=== PATIENT | female | born 1985 | race Hispanic/Latino ===

== ENCOUNTER 2019-08-03 06:49 | Emergency (ER) | payer OTHER ==
[2019-08-03 07:54] LABS: Urine Blood TRACE (NEG); Urine Glucose 2+ (NEG); Urine Protein NEGATIVE (NEG)
[2019-08-03] MEDS ORDERED: FAMOTIDINE 20 MG/2 ML VIAL IV ONE (07:54)
[2019-08-03] MEDS ORDERED: NA CHLORIDE 0.9% 1,000 ML ONE (07:54)
[2019-08-03] MEDS ORDERED: ONDANSETRON 4 MG/2 ML VIAL ONE (07:56)
[2019-08-03 08:03] LABS: Urine Bacteria >50 /HPF (<20); Urine Culture Reflex Order NOT NEEDED
[2019-08-03 08:12] LABS: Absolute Lymphocytes (CBC) 0.5 K/uL (0.7-4.9); Basophils % 0.3 % (0-1.3); Hematocrit 37.3 % (36.0-45.0); Lymphocytes % 6.6 % (15.3-44.8); MPV 8.4 fL (7.6-11.3)
[2019-08-03] MEDS ORDERED: CEFTRIAXONE/SWI 1gm 1 GM/10 ML SYR ONE (08:14)
[2019-08-03 08:27] LABS: ALT/SGPT 17 U/L (12-78); AST/SGOT 15 U/L (15-37); Albumin 2.8 g/dL (3.4-5.0); Alkaline Phosphatase 85 U/L (45-117); BUN Blood Urea Nitrogen 13 mg/dL (7-18); Bicarbonate 23 mmol/L (21-32); Bilirubin Direct 0.1 mg/dL (0-0.2); Bilirubin Total 0.3 mg/dL (0.2-1.0); Glucose Level 214 mg/dL (74-106); Lipase 50 U/L (73-393); Potassium 3.7 mmol/L (3.5-5.1); Protein, Total 6.7 g/dL (6.4-8.2); Sodium Level 137 mmol/L (136-145)
--- NOTE | 2019-08-03 08:37 | EDPHYS ---
Physician Documentation [facility] Name: Tran Spears Age: 34 yrs Sex: Female : 1985 Arrival Date: 08/03/2019 Time: 06:52 Bed 5 Private MD: ED Physician Victor Hugo Abdalla HPI: 08/02 07:40 This 34 yrs old Female presents to ER via Ambulatory with complaints of Fever, cp Abdominal Pain. 07:40 The patient reports fever, not measured (subjective). Onset: The symptoms/episode cp began/occurred 2 day(s) ago. Associated signs and symptoms: Pertinent positives: abdominal pain, vomiting, burning with urination, Pertinent negatives: cough, diarrhea, sore throat. Severity of symptoms: in the emergency department the symptoms are unchanged despite home interventions. 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 - Social history:: Smoking status: Patient denies any tobacco usage or history of. ROS: 07:45 Constitutional: Negative for body aches, chills, fever, poor PO intake. cp 07:45 Eyes: Negative for injury, pain, redness, and discharge. cp 07:45 ENT: Negative for drainage from ear(s), ear pain, sore throat, difficulty swallowing, cp difficulty handling secretions. 07:45 Cardiovascular: Negative for chest pain. 07:45 Respiratory: Negative for cough, shortness of breath, wheezing. 07:45 Abdomen/GI: Positive for abdominal pain, nausea and vomiting. 07:45 Back: Negative for pain at rest, pain with movement. 07:45 : Positive for urinary symptoms. 07:45 Neuro: Negative for altered mental status, headache, weakness. 07:45 All other systems are negative. Exam: 07:55 Constitutional: The patient appears in no acute distress, alert, awake, non-toxic, well cp developed, well nourished. 07:55 Head/Face: Normocephalic, atraumatic. cp 07:55 Eyes: Periorbital structures: appear normal, Conjunctiva: normal, no exudate, no injection, Sclera: no appreciated abnormality, Lids and lashes: appear normal, bilaterally. 07:55 ENT: External ear(s): are unremarkable, Nose: is normal, Mouth: is normal, Posterior pharynx: Airway: no evidence of obstruction, patent. 07:55 Neck: ROM/movement: is normal, is supple, without pain, no range of motions limitations. 07:55 Chest/axilla: Inspection: normal. 07:55 Cardiovascular: Rate: tachycardic, Rhythm: regular. 07:55 Respiratory: the patient does not display signs of respiratory distress, Respirations: normal, no use of accessory muscles, no retractions, labored breathing, is not present, Breath sounds: are clear throughout, no decreased breath sounds. 07:55 Abdomen/GI: Inspection: abdomen appears normal, Bowel sounds: active, all quadrants, Palpation: soft, in all quadrants, nontender, in all quadrants. 07:55 Back: pain, is absent, ROM is normal. Vital Signs: 07:15 BP 130 / 80; Pulse 107; Resp 17; Temp 98.7; Pulse Ox 100% ; Weight 77.11 kg; Height 5 bp ft. 3 in. (160.02 cm); 08:15 BP 117 / 71; Pulse 96; Resp 16; Pulse Ox 100% ; bp 09:00 BP 140 / 87; Pulse 95; Resp 17; Temp 98.5; Pulse Ox 100% ; bp 07:15 Body Mass Index 30.11 (77.11 kg, 160.02 cm) bp MDM: 07:16 Patient medically screened. 08:36 Data reviewed: vital signs, nurses notes, lab test result(s). 08/02 07:35 Order name: Basic Metabolic Panel; Complete Time: 08:31 08/02 08:32 Interpretation: Normal except: CL 109; GLUC 214; CA 8.4. 08/02 07:35 Order name: CBC with Diff; Complete Time: 08:19 / 08:19 Interpretation: Normal except: TIANNA% 81.7; LYM% 6.6. / 07:35 Order name: Creatinine for Radiology; Complete Time: 08:31 08/02 07:35 Order name: Hepatic Function; Complete Time: 08:31 /03 08:31 Interpretation: Normal except: ALB 2.8; GLOB 3.9; A/G 0.7. cp 08/02 07:35 Order name: Lipase; Complete Time: 08:31 cp 08/02 07:35 Order name: Urine Microscopic Only; Complete Time: 08:03 cp 08/02 08:04 Interpretation: Normal except: UWBC >50; URBC 5-10; UBACT >50; SQEPI 5-10. cp 08/02 07:40 Order name: Urine Culture cp 08/02 07:41 Order name: Glucose, Ancillary Testing; Complete Time: 08:03 EDMS 08/02 07:47 Order name: Urine Dipstick--Ancillary (enter results); Complete Time: 08:03 eb 08/02 07:47 Order name: Urine --Ancillary (enter results); Complete Time: 08:03 eb 08/02 07:35 Order name: IV Saline Lock; Complete Time: 07:53 cp 08/02 07:35 Order name: Labs collected and sent; Complete Time: 07:53 cp 08/02 07:35 Order name: Urine Dipstick-Ancillary (obtain specimen); Complete Time: 07:41 cp 08/02 07:35 Order name: Urine Test (obtain specimen); Complete Time: 07:41 cp 08/02 08:32 Order name: PO challenge; Complete Time: 09:00 cp Administered Medications: 08:00 Drug: NS 0.9% 1000 ml Route: IV; Rate: 1 bolus; Site: right antecubital; bp 09:02 Follow up: IV Status: Completed infusion; IV Intake: 1000ml bp 08:03 Drug: Zofran (Ondansetron) 4 mg Route: IVP; Site: right antecubital; rb1 09:02 Follow up: Response: Nausea is decreased bp 08:03 Drug: Pepcid 20 mg Route: IVP; Site: right antecubital; rb1 09:02 Follow up: Response: Nausea is decreased bp 08:08 Drug: Rocephin - (cefTRIAXone) 1 grams Route: IVPB; Infused Over: 30 mins; Site: right bp antecubital; 09:02 Follow up: IV Status: Completed infusion; IV Intake: 50ml bp Disposition: 09:05 Co-signature as Attending Physician, Victor Hugo Abdalla MD. rn Disposition: 08/03/19 08:36 Discharged to Home. Impression: Urinary tract infection, site not specified, Diabetes mellitus due to underlying condition with hyperglycemia. - Condition is Stable. - Discharge Instructions: Urinary Tract Infection, Adult, Blood Glucose Monitoring, Adult, Diabetes Mellitus and Food. - Prescriptions for Zofran 4 mg Oral Tablet - take 1 tablet by ORAL route every 12 hours As needed; 10 tablet. Bactrim DS 800- 160 mg Oral Tablet - take 1 tablet by ORAL route every 12 hours for 7 days; 14 tablet. Pyridium 200 mg Oral Tablet - take 1 tablet by ORAL route every 8 hours for 3 days; 6 tablet. - Medication Reconciliation Form, Thank You Letter, Antibiotic Education, Prescription Opioid Use form. - Follow up: Private Physician; When: 2 - 3 days; Reason: Recheck today's complaints. - Problem is new. - Symptoms have improved. Signatures: Dispatcher [employer] EDMS Victor Hugo Abdalla MD MD rn Natanael Negro PA PA cp Barber, Rebecca, NORMAN AUSTIN rb1 Raleigh Kenyon RN RN bp Corrections: (The following items were deleted from the chart) 08:32 08:31 Normal except: CL 109; GLUC 214. cp cp 09:03 08:36 08/03/2019 08:36 Discharged to Home. Impression: Urinary tract infection, site bp not specified; Diabetes mellitus due to underlying condition with hyperglycemia. Condition is Stable. Prescriptions for Zofran 4 mg Oral Tablet - take 1 tablet by ORAL route every 12 hours As needed; 10 tablet, Bactrim DS 800-160 mg Oral Tablet - take 1 tablet by ORAL route every 12 hours for 7 days; 14 tablet, Pyridium 200 mg Oral Tablet - take 1 tablet by ORAL route every 8 hours for 3 days; 6 tablet. and Forms are Medication Reconciliation Form, Thank You Letter, Antibiotic Education, Prescription Opioid Use. Follow up: Private Physician; When: 2 - 3 days; Reason: Recheck today's complaints. Problem is new. Symptoms have improved. cp
--- NOTE | 2019-08-03 08:37 | ER ---
Nurse's Notes [facility] Name: Tran Spears Age: 34 yrs Sex: Female : 1985 Arrival Date: 08/03/2019 Time: 06:52 Bed 5 Private MD: Diagnosis: Urinary tract infection, site not specified;Diabetes mellitus due to underlying condition with hyperglycemia Presentation: 08/02 07:15 Chief complaint: Patient states: DYSURIA, FEVER AND VOMITING x2 DAYS. Coronavirus bp screen: Proceed with normal triage. Patient reports a measured and/or subjective temperature greater than 100.4F. Ebola Screen: No symptoms or risks identified at this time. Initial Sepsis Screen: Does the patient meet any 2 criteria? HR > 90 bpm. Does the patient have a suspected source of infection? No. Patient's initial sepsis screen is negative. Risk Assessment: Do you want to hurt yourself or someone else? Patient reports no desire to harm self or others. Onset of symptoms is unknown. 07:15 Method Of Arrival: Ambulatory bp 07:15 Acuity: LIN 3 bp Triage Assessment: 07:15 General: Appears in no apparent distress. uncomfortable, obese, Behavior is bp cooperative, appropriate for age, anxious. 07:15 Pain: Complains of pain in suprapubic area. EENT: No deficits noted. Neuro: No deficits bp noted. Cardiovascular: Rhythm is sinus tachycardia. Respiratory: No deficits noted. GI: Reports lower abdominal pain, nausea, vomiting. : Reports burning with urination. Derm: No deficits noted. Musculoskeletal: No deficits noted. 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 - Social history:: Smoking status: Patient denies any tobacco usage or history of. Screenin:40 Abuse screen: Denies threats or abuse. Denies injuries from another. Nutritional bp screening: No deficits noted. Tuberculosis screening: No symptoms or risk factors identified. Fall Risk None identified. Assessment: 07:40 General: SEE TRIAGE NOTE. bp 08:15 Reassessment: IVF INFUSING, ALL CURRENT ORDERS IN PROCESS. bp 09:00 Reassessment: PO CHALLENGE SUCCESSFUL. PT D/C HOME AMBULATORY, DX WITH UTI. bp Vital Signs: 07:15 BP 130 / 80; Pulse 107; Resp 17; Temp 98.7; Pulse Ox 100% ; Weight 77.11 kg; Height 5 bp ft. 3 in. (160.02 cm); 08:15 BP 117 / 71; Pulse 96; Resp 16; Pulse Ox 100% ; bp 09:00 BP 140 / 87; Pulse 95; Resp 17; Temp 98.5; Pulse Ox 100% ; bp 07:15 Body Mass Index 30.11 (77.11 kg, 160.02 cm) bp ED Course: 06:52 Patient arrived in ED. ds1 06:55 Natanael Negro PA is PHCP. cp 06:55 Natanael Schreiber MD is Attending Physician. cp 07:15 Arm band placed on. bp 07:16 Victor Hugo Abdalla MD is Attending Physician. cp 07:21 Raleigh Kenyon, NORMAN is Primary Nurse. bp 07:37 Triage completed. bp 07:40 Patient has correct armband on for positive identification. Bed in low position. Call bp light in reach. Side rails up X2. 08:00 Inserted saline lock: 22 gauge in right antecubital area, using aseptic technique. rb1 Blood collected. 09:00 No provider procedures requiring assistance completed. IV discontinued, intact, bp bleeding controlled, No redness/swelling at site. Pressure dressing applied. Administered Medications: 08:00 Drug: NS 0.9% 1000 ml Route: IV; Rate: 1 bolus; Site: right antecubital; bp 09:02 Follow up: IV Status: Completed infusion; IV Intake: 1000ml bp 08:03 Drug: Zofran (Ondansetron) 4 mg Route: IVP; Site: right antecubital; rb1 09:02 Follow up: Response: Nausea is decreased bp 08:03 Drug: Pepcid 20 mg Route: IVP; Site: right antecubital; rb1 09:02 Follow up: Response: Nausea is decreased bp 08:08 Drug: Rocephin - (cefTRIAXone) 1 grams Route: IVPB; Infused Over: 30 mins; Site: right bp antecubital; 09:02 Follow up: IV Status: Completed infusion; IV Intake: 50ml bp Intake: 09:02 IV: 1000ml; Total: 1000ml. bp 09:02 IV: 50ml; Total: 1050ml. bp Outcome: 08:36 Discharge ordered by . cole 09:00 Discharged to home ambulatory. bp 09:00 Condition: stable 09:00 Discharge instructions given to patient, Instructed on discharge instructions, follow up and referral plans. medication usage, Demonstrated understanding of instructions, follow-up care, medications, Prescriptions given X 3. 09:03 Patient left the ED. bp Signatures: Denia Christianson ds1 Natanael Negro PA PA Tran Deluna, RN RN rb1 Raleigh Kenyon, RN RN bp
[2019-08-03 09:56] VITALS: O2SAT 100
[2019-08-03 09:57] VITALS: BP 140/87; TEMP 98.5
== END 2019-08-03 09:03 | disposition home or self-care (01) ==
LOC: ER 06:49
DX: N39.0 Urinary tract infection, site not specified (principal); E11.65 Type 2 diabetes mellitus with hyperglycemia; Z88.3 Allergy status to other anti-infective agents
CPT/HCPCS: 87088; 85025; 87086; 80048; 36415; 81025; 82947; 80076; 83690; J0696; J7030; J2405; 81003; 81015; 87077; 87186; 96365; 96375; 99284

== ENCOUNTER 2020-07-10 20:55 | Emergency (ER) | payer OTHER ==
[2020-07-10 22:46] LABS: SARS-COV-2 RT PCR POSITIVE (NEGATIVE)
--- NOTE | 2020-07-10 23:11 | ER ---
Nurse's Notes [facility] Name: Tran Spears Age: 34 yrs Sex: Female : 1985 Arrival Date: 07/10/2020 Time: 20:59 Bed 19 Private MD: Diagnosis: Coronavirus as the cause of diseases classified elsewhere Presentation: 07/10 21:09 Chief complaint: Patient states: Cough, congestion, chills, runny nose last couple sf days. dx with COVID 2 days ago. Coronavirus screen: Client denies travel out of the [place] in the last 14 days. chills, congestion, cough unrelated to allergies, runny nose, Client presents with at least one sign or symptom that may indicate coronavirus-19. Standard/surgical mask placed on the client. Provider contacted for isolation considerations. Ebola Screen: Patient negative for fever greater than or equal to 101.5 degrees Fahrenheit, and additional compatible Ebola Virus Disease symptoms Patient denies exposure to infectious person. Patient denies travel to an Ebola-affected area in the 21 days before illness onset. No symptoms or risks identified at this time. Initial Sepsis Screen: Does the patient meet any 2 criteria? No. Patient's initial sepsis screen is negative. Does the patient have a suspected source of infection? No. Patient's initial sepsis screen is negative. Risk Assessment: Do you want to hurt yourself or someone else? Patient reports no desire to harm self or others. Onset of symptoms was July 08, 2020. 21:09 Method Of Arrival: Ambulatory sf 21:09 Acuity: LIN 3 sf Triage Assessment: 21:13 General: Appears in no apparent distress. comfortable, Behavior is calm, cooperative. sf Pain: Complains of pain in face. EENT: Reports nasal congestion nasal discharge that is watery. Neuro: No deficits noted. Level of Consciousness is awake, alert, Oriented to person, place, time, situation. Cardiovascular: No deficits noted. Capillary refill < 3 seconds. Respiratory: Reports cough that is productive, Airway is patent Respiratory effort is even, unlabored, Respiratory pattern is regular, symmetrical, Denies shortness of breath labored breathing, pain with respiration, pain with cough, pain with movement, air hunger. GI: No signs and/or symptoms were reported involving the gastrointestinal system. : No signs and/or symptoms were reported regarding the genitourinary system. Derm: Skin is moist, Skin is pink, Skin temperature is warm. Musculoskeletal: No signs and/or symptoms reported regarding the musculoskeletal system. Historical: - Allergies: 21:13 Clindamycin; sf - Home Meds: 21:13 metformin 1,000 mg Oral tab 1 tab 2 times per day [Active]; sf - PMHx: 21:13 Diabetes - NIDDM; sf - PSHx: 21:13 None; sf - Immunization history:: Adult Immunizations up to date. - Social history:: Smoking status: Patient reports the use of cigarette tobacco products, smokes .25 packs per day, Patient/guardian denies using alcohol, street drugs, IV drugs. Screenin:15 Abuse screen: Denies threats or abuse. Denies injuries from another. Nutritional sf screening: No deficits noted. Tuberculosis screening: No symptoms or risk factors identified. Never had TB. Possible symptoms: None Risk factors: None. Fall Risk None identified. No fall in past 12 months (0 pts). No secondary diagnosis (0 pts). No IV (0 pts). Ambulatory Aid- None/Bed Rest/Nurse Assist (0 pts). Gait- Normal/Bed Rest/Wheelchair (0 pts) Mental Status- Oriented to own ability (0 pts). Total Langley Fall Scale indicates No Risk (0-24 pts). Assessment: 21:15 Reassessment: SEE TRIAGE ASSESSMENT. sf 22:13 Reassessment: Patient appears in no apparent distress at this time. No changes from sf previously documented assessment. Patient and/or family updated on plan of care and expected duration. Pain level reassessed. Patient is alert, oriented x 3, equal unlabored respirations, skin warm/dry/pink. 23:16 Reassessment: Patient appears in no apparent distress at this time. No changes from sf previously documented assessment. Patient and/or family updated on plan of care and expected duration. Pain level reassessed. Patient is alert, oriented x 3, equal unlabored respirations, skin warm/dry/pink. Vital Signs: 21:09 BP 142 / 92; Pulse 82; Resp 20; Temp 99.1; Pulse Ox 100% ; Weight 90.72 kg; Height 5 sf ft. 3 in. (160.02 cm); Pain 4/10; 21:30 BP 118 / 69; Pulse 83; Resp 18; Pulse Ox 100% ; sf 22:00 BP 115 / 54; Pulse 79; Resp 18; Pulse Ox 99% ; sf 22:30 BP 100 / 88; Pulse 82; Resp 18; Pulse Ox 100% ; sf 23:00 BP 130 / 94; Pulse 90; Resp 18; Pulse Ox 98% ; sf 21:09 Body Mass Index 35.43 (90.72 kg, 160.02 cm) sf ED Course: 20:59 Patient arrived in ED. cf2 21:01 Matt Granger, RN is Primary Nurse. sf 21:02 Natanael Negro PA is PHCP. cp 21:02 Santos Grubbs MD is Attending Physician. cp 21:12 Triage completed. sf 21:13 Arm band placed on. sf 21:15 Patient has correct armband on for positive identification. Bed in low position. Call sf light in reach. Side rails up X 1. Pulse ox on. NIBP on. Door closed. Noise minimized. Visitors limited. Lights dimmed. Verbal reassurance given. 23:16 No provider procedures requiring assistance completed. Patient did not have IV access sf during this emergency room visit. Administered Medications: No medications were administered Outcome: 23:11 Discharge ordered by MD. cp 23:16 Discharged to home ambulatory. sf 23:16 Condition: stable 23:16 Discharge instructions given to patient, Instructed on discharge instructions, follow up and referral plans. medication usage, Demonstrated understanding of instructions, follow-up care, medications, Prescriptions given X 1. 23:21 Patient left the ED. sf Signatures: Natanael Nergo PA PA Brigitte Pereira cf2 Matt Granger RN RN sf Corrections: (The following items were deleted from the chart) 21:16 21:13 Cardiovascular: No deficits noted. Patient's skin is warm and dry. sf sf 21:16 21:13 Derm: No signs and/or symptoms reported regarding the dermatologic system. sf sf
--- NOTE | 2020-07-10 23:11 | EDPHYS ---
Physician Documentation [facility] Name: Tran Spears Age: 34 yrs Sex: Female : 1985 Arrival Date: 07/10/2020 Time: 20:59 Bed 19 Private MD: ED Physician Santos Grubbs HPI: 07/10 21:20 This 34 yrs old Female presents to ER via Ambulatory with complaints of Cough, cp Runny Nose, CHILLS. 21:20 The patient or guardian reports cough, that is intermittent, with no sputum. Onset: The cp symptoms/episode began/occurred 2 day(s) ago. Associated signs and symptoms: Pertinent positives: rhinorrhea, sore throat, Pertinent negatives: chest pain, diarrhea, fever, vomiting. Patient reports was informed today that he was positive for COVID-19. Historical: - Allergies: 21:13 Clindamycin; sf - Home Meds: 21:13 metformin 1,000 mg Oral tab 1 tab 2 times per day [Active]; sf - PMHx: 21:13 Diabetes - NIDDM; sf - PSHx: 21:13 None; sf - Immunization history:: Adult Immunizations up to date. - Social history:: Smoking status: Patient reports the use of cigarette tobacco products, smokes .25 packs per day, Patient/guardian denies using alcohol, street drugs, IV drugs. ROS: 21:25 Constitutional: Negative for body aches, chills, fever, poor PO intake. cp 21:25 Eyes: Negative for injury, pain, redness, and discharge. cp 21:25 ENT: Positive for sore throat, Negative for drainage from ear(s), ear pain, difficulty swallowing, difficulty handling secretions. 21:25 Cardiovascular: Negative for chest pain, palpitations. 21:25 Respiratory: Positive for cough, with no reported sputum, Negative for shortness of breath, wheezing. 21:25 Abdomen/GI: Negative for abdominal pain, nausea, vomiting, and diarrhea. 21:25 Skin: Negative for rash. 21:25 Neuro: Negative for altered mental status, headache, weakness. 21:25 All other systems are negative. Exam: 21:30 Constitutional: The patient appears in no acute distress, alert, awake, cp non-diaphoretic, non-toxic, well developed, well nourished. 21:30 Head/Face: Normocephalic, atraumatic. cp 21:30 Eyes: Periorbital structures: appear normal, Conjunctiva: normal, no exudate, no injection, Sclera: no appreciated abnormality, Lids and lashes: appear normal, bilaterally. 21:30 ENT: External ear(s): are unremarkable, Nose: nasal drainage, and is seen coming from both nares, that is clear, Mouth: Lips: moist, Oral mucosa: moist, Posterior pharynx: Airway: no evidence of obstruction, patent, Tonsils: no enlargement, no exudate, Uvula: midline, erythema, that is mild, exudate, is not appreciated. 21:30 Neck: ROM/movement: is normal, is supple, without pain, no range of motions limitations, no meningismus, Lymph nodes: no appreciated lymphadenopathy. 21:30 Chest/axilla: Inspection: normal, Palpation: is normal, no crepitus, no tenderness. 21:30 Cardiovascular: Rate: normal, Rhythm: regular, Edema: is not appreciated, JVD: is not appreciated. 21:30 Respiratory: the patient does not display signs of respiratory distress, Respirations: normal, no use of accessory muscles, no retractions, labored breathing, is not present, Breath sounds: decreased breath sounds, are not appreciated, stridor, is not appreciated, + upper airway congestion. wheezing: is not appreciated. 21:30 Abdomen/GI: Exam negative for discomfort, distension, guarding, Inspection: abdomen appears normal. Vital Signs: 21:09 BP 142 / 92; Pulse 82; Resp 20; Temp 99.1; Pulse Ox 100% ; Weight 90.72 kg; Height 5 sf ft. 3 in. (160.02 cm); Pain 4/10; 21:30 BP 118 / 69; Pulse 83; Resp 18; Pulse Ox 100% ; sf 22:00 BP 115 / 54; Pulse 79; Resp 18; Pulse Ox 99% ; sf 22:30 BP 100 / 88; Pulse 82; Resp 18; Pulse Ox 100% ; sf 23:00 BP 130 / 94; Pulse 90; Resp 18; Pulse Ox 98% ; sf 21:09 Body Mass Index 35.43 (90.72 kg, 160.02 cm) sf MDM: 21:06 Patient medically screened. cp 22:00 Differential Diagnosis: Bronchitis Influenza Pneumonia Other COVID-19, hypoxia, strep cp throat. 23:10 Data reviewed: vital signs, nurses notes, lab test result(s), and as a result, I will cp discharge patient. 23:10 Counseling: I had a detailed discussion with the patient and/or guardian regarding: the cp historical points, exam findings, and any diagnostic results supporting the discharge/admit diagnosis, lab results, to return to the emergency department if symptoms worsen or persist or if there are any questions or concerns that arise at home. 07/10 21:17 Order name: COVID-19 : Document "Date of Symptom Onset" if Symptomatic. 07/10 21:17 Order name: Strep; Complete Time: 23:07 cp 07/10 22:00 Order name: Throat Culture EDNJ 07/10 22:46 Order name: COVID-19/FLU A+B; Complete Time: 23:07 EDNJ 07/10 23:07 Interpretation: Abnormal: SARSCOV2 RT PCR POSITIVE. cp Administered Medications: No medications were administered Disposition: 07/11 06:03 Co-signature as Attending Physician, Santos Grubbs MD. 7 Disposition: 07/10/20 23:11 Discharged to Home. Impression: Coronavirus as the cause of diseases classified elsewhere. - Condition is Stable. - Discharge Instructions: Form - Excuse from Work, School, or Physical Activity, COVID-19. - Prescriptions for Tessalon Perles 100 mg Oral Capsule - take 2 capsule by ORAL route every 8 hours As needed; 30 capsule. - Medication Reconciliation Form, Thank You Letter, Antibiotic Education, Prescription Opioid Use form. - Follow up: Private Physician; When: 2 - 3 days; Reason: Worsening of condition. - Problem is new. - Symptoms have improved. Signatures: Dispatcher [employer] EDMS Natanael Negro PA PA cp Santos Grubbs MD MD [facility] Matt Granger RN RN sf Corrections: (The following items were deleted from the chart) 07/10 21:41 21:18 Influenza Screen (A \\T\\ B)+[id number] ordered. EDMS EDMS 21:42 21:18 CORONAVIRUS ordered. EDNJ EDMS 23:21 23:11 07/10/2020 23:11 Discharged to Home. Impression: Coronavirus as the cause of sf diseases classified elsewhere. Condition is Stable. Forms are Medication Reconciliation Form, Thank You Letter, Antibiotic Education, Prescription Opioid Use. Follow up: Private Physician; When: 2 - 3 days; Reason: Worsening of condition. Problem is new. Symptoms have improved. cp
[2020-07-11 02:00] VITALS: TEMP 99.1
[2020-07-11 02:05] VITALS: BP 130/94; O2SAT 98
== END 2020-07-10 23:21 | disposition home or self-care (01) ==
LOC: ER 20:55
DX: U07.1 COVID-19 (principal); E11.9 Type 2 diabetes mellitus without complications; Z79.84 Long term (current) use of oral hypoglycemic drugs; F17.210 Nicotine dependence, cigarettes, uncomplicated
CPT/HCPCS: 87070; 87081; 0240U; 99283

== ENCOUNTER 2020-08-13 13:59 | Inpatient (IN) | payer OTHER ==
[2020-08-13 15:16] LABS: Absolute Lymphocytes (CBC) 0.5 K/uL (0.7-4.9); Basophils % 0.1 % (0-1.3); Hematocrit 38.7 % (36.0-45.0); Lymphocytes % 3.1 % (15.3-44.8); MPV 8.3 fL (7.6-11.3); RBC Red Blood Cell Count 4.63 M/uL (3.86-4.86)
[2020-08-13 15:23] LABS: Urine Blood Trace-intact (Negative); Urine Glucose 2+ (Negative); Urine Protein 2+ (Negative); Urine Specific Gravity 1.025 (1.005-1.030); Urine pH 5.5 (5.0-7.0)
[2020-08-13] MEDS ORDERED: NA CHLORIDE 0.9% 1,000 ML ONE (15:26)
[2020-08-13 15:41] LABS: Bilirubin Direct 0.3 mg/dL (0-0.2); Bilirubin Total 0.7 mg/dL (0.2-1.0); Potassium 3.6 mmol/L (3.5-5.1); Protein, Total 7.2 g/dL (6.4-8.2)
[2020-08-13 15:46] LABS: Urine Specific Gravity/Preg 1.025 (1.005-1.030)
[2020-08-13 15:52] LABS: Blood Morphology Comment NOT SEEN (NOT SEEN); Platelet Estimate ADEQ; White Blood Cell Scan OK (OK)
[2020-08-13 16:13] LABS: Urine Bacteria 20-50 /HPF (<20)
[2020-08-13] MEDS ORDERED: KETOROLAC 30 MG/ML INJ ONE (16:22)
--- NOTE | 2020-08-13 16:27 | RAD REPORT ---
EXAM DESCRIPTION: CT - Abdomen Pelvis W Contrast - 08/13/2020 4:08 pm CLINICAL HISTORY: Abdominal pain COMPARISON: 2010 TECHNIQUE: Computed axial tomography of the abdomen pelvis was obtained. 100 cc Isovue-300 was admin istered intravenously. Oral contrast was not requested which limits evaluation of bowel. All CT scans are performed using dose optimization technique as appropriate and may include automated exposure control or mA/KV adjustment according to patient size. FINDINGS: A 10 millimeter opacity left lower lobe contains couple small lucencies. Additional smalle r opacity left lower lobe. Mild fatty liver. Spleen, pancreas, adrenals appear unremarkable. 11 millimeter fatty lesion right kidney. Moderate low-density areas are present within the left kidney reaching the periphery consistent with pyelonephritis. No abscess seen. There is no evidence of diverticulitis. Normal appendix IMPRESSION: Moderate pyelonephritis. Left lung opacities. These could indicate infection such as septic emboli
--- NOTE | 2020-08-13 17:31 | RAD REPORT ---
EXAM DESCRIPTION: Ceasar Pa And Lat (2 Views)08/13/2020 5:17 pm CLINICAL HISTORY: Fever COMPARISON: None FINDINGS: Mild opacities are present within the left lung. Right lung appears clear. The heart is normal size IMPRESSION: Mild left lung opacities probably pneumonia
--- NOTE | 2020-08-13 18:07 | ER ---
Nurse's Notes [facility] Name: Tran Spears Age: 35 yrs Sex: Female : 1985 Arrival Date: 08/13/2020 Time: 14:04 Bed 30 Private MD: Diagnosis: Acute tubulo-interstitial nephritis;Pneumonia, unspecified organism Presentation: 08/13 14:12 Chief complaint: Patient states: "I started throwing up and my back is hurting, and I jd3 haven't been able to sleep. I have also been having a fever.". Coronavirus screen: fever, vomiting. Client presents with at least one sign or symptom that may indicate coronavirus-19. Standard/surgical mask placed on the client. Provider contacted for isolation considerations. Ebola Screen: Patient negative for fever greater than or equal to 101.5 degrees Fahrenheit, and additional compatible Ebola Virus Disease symptoms. Initial Sepsis Screen: Does the patient meet any 2 criteria? No. Patient's initial sepsis screen is negative. Does the patient have a suspected source of infection? No. Patient's initial sepsis screen is negative. Risk Assessment: Do you want to hurt yourself or someone else? Patient reports no desire to harm self or others. Note Motrin taken at 1200. Onset of symptoms was August 12, 2020. 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 - Social history:: Smoking status: Patient reports the use of cigarette tobacco products, denies chronic smoking, but will smoke occasionally. Screenin:12 Abuse screen: Denies threats or abuse. Denies injuries from another. Nutritional zb screening: No deficits noted. Tuberculosis screening: No symptoms or risk factors identified. Fall Risk None identified. Assessment: 14:32 Reassessment: ECP at bedside. zb 15:00 General: Appears uncomfortable, Behavior is calm, cooperative, appropriate for age, zb Reports chills for 1-2 days, fever for 1-2 days, feeling ill for 1-2 days. Pain: Complains of pain in abdomen Pain radiates to low back area Pain currently is 8 out of 10 on a pain scale. Quality of pain is described as crampy, Pain began suddenly. Neuro: Level of Consciousness is awake, alert, obeys commands, Oriented to person, place, time, situation. Cardiovascular: Capillary refill < 3 seconds Patient's skin is warm and dry. Respiratory: Airway is patent Respiratory effort is even, unlabored, Respiratory pattern is regular, symmetrical. GI: Abdomen is round Bowel sounds present X 4 quads. Abdomen is tender to palpation X 4 quads. : Reports cramping, upper quadrant(s) lower quadrant(s) lower back urgency. Derm: Skin is intact, is healthy with good turgor, Skin is diaphoretic, Skin is pale, Skin temperature is warm. Musculoskeletal: Circulation, motion, and sensation intact. Range of motion: intact in all extremities. 16:00 Reassessment: Patient appears in no apparent distress at this time. Patient and/or zb family updated on plan of care and expected duration. Pain level reassessed. IV fluids continue to infuse. 17:00 Reassessment: Patient appears in no apparent distress at this time. Patient and/or zb family updated on plan of care and expected duration. Pain level reassessed. family at bedside. 18:20 Reassessment: Patient appears in no apparent distress at this time. Patient and/or zb family updated on plan of care and expected duration. Pain level reassessed. patient appears slightly chilly. temp checked low grade fever. IV continues to infuse. family remains at bedside. 19:23 Reassessment: hospitalist at bedside, patient stated that she had vomited, verbal order zb to only ice chips at this time. 20:20 Reassessment: Patient appears in no apparent distress at this time. Report given to brijesh mccann RN. Vital Signs: 14:14 BP 125 / 74; Pulse 114; Resp 18 S; Temp 98.9(TE); Pulse Ox 99% on R/A; Weight 90.72 kg jd3 (R); Height 5 ft. 3 in. (160.02 cm) (R); Pain 7/10; 15:15 BP 94 / 63; Pulse 101; Resp 19; Temp 99.6(O); Pulse Ox 100% on R/A; zb 16:37 BP 100 / 92; Pulse 91; Resp 16; Pulse Ox 10% on R/A; zb 17:45 BP 106 / 77; Pulse 97; Resp 18; Pulse Ox 100% on R/A; zb 18:30 BP 105 / 61; Pulse 102; Resp 18; Temp 99.5; Pulse Ox 100% on R/A; zb 19:00 BP 129 / 87; Pulse 119; Resp 18; Pulse Ox 100% on R/A; zb 14:14 Body Mass Index 35.43 (90.72 kg, 160.02 cm) jd3 ED Course: 14:04 Patient arrived in ED. am2 14:13 Triage completed. jd3 14:15 Arm band placed on. jd3 14:18 [facility] kb 14:18 Natanael Schreiber MD is Attending Physician. kb 14:32 Niecy Oh RN is Primary Nurse. zb 15:00 Inserted saline lock: 20 gauge in right antecubital area, using aseptic technique. zb Blood collected. 15:00 Initial lab(s) drawn, by me, sent to lab. zb 15:12 Patient has correct armband on for positive identification. Call light in reach. Side zb rails up X 1. Pulse ox on. NIBP on. Door closed. Noise minimized. 15:30 Urine collected: clean catch specimen, cloudy. zb 16:14 CT Abd/Pelvis - IV Contrast Only In Process Unspecified. EDMS 17:17 Chest Pa And Lat (2 Views) XRAY In Process Unspecified. EDMS 17:17 COVID swab sent to lab. zb 18:07 Derek Saeed DO is Hospitalizing Provider. kb 20:44 No provider procedures requiring assistance completed. Patient admitted, IV remains in zb place. 21:31 Ferritin Sent. zb 21:31 CRP Sent. zb 21:31 Urine Microscopic Only Sent. zb Administered Medications: 15:08 Drug: NS 0.9% 1000 ml Route: IV; Rate: 1000 ml; Site: left antecubital; zb 19:11 Follow up: Response: No adverse reaction; IV Status: Completed infusion; IV Intake: zb 1000ml 16:20 Drug: Zithromax (azithromycin) 500 mg Route: IVPB; Infused Over: 1 hrs; Site: right zb antecubital; 20:45 Follow up: Response: No adverse reaction; IV Status: Completed infusion; IV Intake: zb 250ml 16:21 Drug: TORadol (ketorolac) 30 mg Route: IVP; Site: right antecubital; zb 17:20 Follow up: Response: No adverse reaction; Pain is decreased zb 16:40 Drug: fentaNYL (PF) 25 mcg {Note: RASS +1.} Route: IVP; Site: right antecubital; zb 19:07 Follow up: Response: No adverse reaction; Pain is decreased; RASS: Alert and Calm (0) zb 18:46 Drug: Rocephin (cefTRIAXone) 1 grams Route: IV; Rate: calculated rate; Site: right z antecubital; 18:46 Follow up: Response: No adverse reaction; IV Status: Completed infusion; IV Intake: 10mlzb Intake: 18:46 IV: 10ml; Total: 10ml. zb 19:11 IV: 1000ml; Total: 1010ml. zb 20:45 IV: 250ml; Total: 1260ml. zb Outcome: 18:07 Decision to Hospitalize by Provider. kb 20:44 Admitted to Med/surg accompanied by tech, room 216, with chart, Report called to brijesh Johnson RN 20:44 Condition: stable 20:44 Instructed on follow up and referral plans. Demonstrated understanding of follow-up care. 21:13 Patient left the ED. zb Signatures: Dispatcher [employer] EDOR Melanie Thurston, [employer] ELECTRICAL INSTALLER-Jaclyn Tejeda am2 Sage Dove RN RN jd3 Brown, Zipporah, RN RN zb Corrections: (The following items were deleted from the chart) 16:37 15:15 BP 94 / 63; Pulse 101bpm; Resp 19bpm; Pulse Ox 100% RA; zb zb 19:15 18:30 BP 105 / 61; Pulse 102bpm; Resp 18bpm; Pulse Ox 100% RA; zb zb
--- NOTE | 2020-08-13 18:07 | EDPHYS ---
Physician Documentation [facility] Name: Tran Spears Age: 35 yrs Sex: Female : 1985 Arrival Date: 08/13/2020 Time: 14:04 Bed 30 Private MD: ED Physician Natanael Schreiber HPI: 08/13 21:13 This 35 yrs old Female presents to ER via Ambulatory with complaints of Back kb Pain, Fever, Abdominal Pain. 21:16 The patient presents with abdominal pain in the left upper quadrant, in the left lower kb quadrant. Onset: The symptoms/episode began/occurred today. The symptoms radiate to the left flank. Associated signs and symptoms: Pertinent positives: nausea and vomiting, fever. The symptoms are described as constant. Modifying factors: The symptoms are alleviated by nothing, the symptoms are aggravated by nothing. Severity of pain: At its worst the pain was moderate in the emergency department the pain is unchanged. The patient has not experienced similar symptoms in the past. The patient has not recently seen a physician. Pt reports she had fever yesterday, then abd pain, nausea and vomiting today. 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 - Social history:: Smoking status: Patient reports the use of cigarette tobacco products, denies chronic smoking, but will smoke occasionally. ROS: 21:11 Constitutional: Positive for chills, fever. kb 21:11 Abdomen/GI: Positive for abdominal pain, nausea and vomiting, Negative for diarrhea. 21:11 Back: Positive for pain at rest, pain with movement, of the left flank. 21:11 All other systems are negative. 22:12 Cardiovascular: Negative for chest pain, palpitations, and edema. kb Exam: 21:13 Head/Face: Normocephalic, atraumatic. ENT: Moist Mucous membranes Cardiovascular: kb Regular rate and rhythm with a normal S1 and S2. No gallops, murmurs, or rubs. No pulse deficits. Respiratory: Respirations even and unlabored. No increased work of breathing, no retractions or nasal flaring. Skin: Warm, dry with normal turgor. Normal color. MS/ Extremity: Pulses equal, no cyanosis. Neurovascular intact. Full, normal range of motion. Neuro: Awake and alert, GCS 15, oriented to person, place, time, and situation. Moves all extremities. Normal gait. Psych: Awake, alert, with orientation to person, place and time. Behavior, mood, and affect are within normal limits. 21:13 Abdomen/GI: Inspection: abdomen appears normal, Bowel sounds: normal, in all quadrants, Palpation: soft, in all quadrants, moderate abdominal tenderness, in the left upper quadrant and left lower quadrant. 21:13 Back: pain, that is moderate, of the left flank. Vital Signs: 14:14 BP 125 / 74; Pulse 114; Resp 18 S; Temp 98.9(TE); Pulse Ox 99% on R/A; Weight 90.72 kg jd3 (R); Height 5 ft. 3 in. (160.02 cm) (R); Pain 7/10; 15:15 BP 94 / 63; Pulse 101; Resp 19; Temp 99.6(O); Pulse Ox 100% on R/A; zb 16:37 BP 100 / 92; Pulse 91; Resp 16; Pulse Ox 10% on R/A; zb 17:45 BP 106 / 77; Pulse 97; Resp 18; Pulse Ox 100% on R/A; zb 18:30 BP 105 / 61; Pulse 102; Resp 18; Temp 99.5; Pulse Ox 100% on R/A; zb 19:00 BP 129 / 87; Pulse 119; Resp 18; Pulse Ox 100% on R/A; zb 14:14 Body Mass Index 35.43 (90.72 kg, 160.02 cm) jd3 MDM: 14:18 Patient medically screened. kb 21:10 Data reviewed: vital signs, nurses notes. Data interpreted: Pulse oximetry: on room air kb is 100 %. Interpretation: normal. Counseling: I had a detailed discussion with the patient and/or guardian regarding: the historical points, exam findings, and any diagnostic results supporting the discharge/admit diagnosis, lab results, radiology results, the need for further work-up and treatment in the hospital. Physician consultation: Antoine BAILEY regarding admission, patient's condition, and will see patient in ED. 08/13 14:34 Order name: Urine Microscopic Only kb 08/13 14:34 Order name: Basic Metabolic Panel kb 08/13 14:34 Order name: CBC with Diff kb 08/13 14:34 Order name: Hepatic Function; Complete Time: 15:46 kb 08/13 14:34 Order name: Lipase; Complete Time: 15:46 kb 08/13 14:35 Order name: Urine Microscopic Only; Complete Time: 16:25 EDMS 08/13 14:35 Order name: Basic Metabolic Panel; Complete Time: 15:46 EDMS 08/13 14:35 Order name: CBC with Automated Diff; Complete Time: 15:59 EDMS 08/13 15:24 Order name: Urine Dipstick-Ancillary; Complete Time: 15:46 EDMS 08/13 15:31 Order name: Urine --Ancillary (enter results); Complete Time: 15:47 eb 08/13 15:52 Order name: CBC Smear Scan; Complete Time: 15:59 EDMS 08/13 16:14 Order name: Urine Culture EDOH 08/13 16:33 Order name: Lactate kb 08/13 16:33 Order name: Blood Culture Adult (2) kb 08/13 14:34 Order name: Urine Test (obtain specimen); Complete Time: 15:37 kb 08/13 14:34 Order name: Urine Dipstick-Ancillary (obtain specimen); Complete Time: 15:38 kb 08/13 15:46 Order name: CT Abd/Pelvis - IV Contrast Only; Complete Time: 16:30 kb 08/13 16:33 Order name: Chest Pa And Lat (2 Views) XRAY; Complete Time: 17:33 kb 08/13 16:34 Order name: Lactate; Complete Time: 17:18 EDMS 08/13 18:38 Order name: CRP la1 08/13 18:38 Order name: Ferritin la1 08/13 19:16 Order name: SARS-COV-2 RT PCR; Complete Time: 19:24 EDMS 08/13 19:20 Order name: C-Reactive Protein; Complete Time: 19:24 EDMS 08/13 19:20 Order name: Ferritin; Complete Time: 19:24 EDMS 08/13 14:34 Order name: IV Saline Lock; Complete Time: 15:08 kb 08/13 14:34 Order name: Labs collected and sent; Complete Time: 15:08 kb Administered Medications: 15:08 Drug: NS 0.9% 1000 ml Route: IV; Rate: 1000 ml; Site: left antecubital; zb 19:11 Follow up: Response: No adverse reaction; IV Status: Completed infusion; IV Intake: zb 1000ml 16:20 Drug: Zithromax (azithromycin) 500 mg Route: IVPB; Infused Over: 1 hrs; Site: right zb antecubital; 20:45 Follow up: Response: No adverse reaction; IV Status: Completed infusion; IV Intake: zb 250ml 16:21 Drug: TORadol (ketorolac) 30 mg Route: IVP; Site: right antecubital; zb 17:20 Follow up: Response: No adverse reaction; Pain is decreased zb 16:40 Drug: fentaNYL (PF) 25 mcg {Note: RASS +1.} Route: IVP; Site: right antecubital; zb 19:07 Follow up: Response: No adverse reaction; Pain is decreased; RASS: Alert and Calm (0) zb 18:46 Drug: Rocephin (cefTRIAXone) 1 grams Route: IV; Rate: calculated rate; Site: right zb antecubital; 18:46 Follow up: Response: No adverse reaction; IV Status: Completed infusion; IV Intake: 10mlzb Disposition: 08/14 07:50 Co-signature as Attending Physician, Natanael Schreiber MD I agree with the assessment and caroline plan of care. Disposition: 08/13/20 18:07 Hospitalization ordered by Derek Saeed for Observation. Preliminary diagnosis are Acute tubulo-interstitial nephritis, Pneumonia, unspecified organism. - Bed requested for Telemetry/MedSurg (observation). - Status is Observation. zb - Condition is Stable. - Problem is new. - Symptoms are unchanged. Signatures: Dispatcher [employer] Melanie Manzano FNP-C FNP-Natanael Charles MD MD cha Garcia, Cindy, Sage Perez RN, RN RN jd3 Brown, Zipporah, RN RN zb Corrections: (The following items were deleted from the chart) 08/13 18:07 18:07 Hospitalization Ordered by Derek Saeed DO for Observation. Preliminary kb diagnosis is Acute tubulo-interstitial nephritis; Viral pneumonia, unspecified. Bed requested for Telemetry/MedSurg (observation). Status is Observation. Condition is Stable. Problem is new. Symptoms are unchanged. kb 18:29 16:34 CORONAVIRUS+MR.LAB.BRZ ordered. EDMS EDMS 20:20 18:07 08/13/2020 18:07 Hospitalization Ordered by Derek Saeed DO for Observation. cg Preliminary diagnosis is Acute tubulo-interstitial nephritis; Pneumonia, unspecified organism. Bed requested for Telemetry/MedSurg (observation). Status is Observation. Condition is Stable. Problem is new. Symptoms are unchanged. kb 21:13 20:20 08/13/2020 18:07 Hospitalization Ordered by Derek Saeed DO for Observation. zb Preliminary diagnosis is Acute tubulo-interstitial nephritis; Pneumonia, unspecified organism. Bed requested for Telemetry/MedSurg (observation). Status is Observation. Condition is Stable. Problem is new. Symptoms are unchanged. cg
[2020-08-13] MEDS ORDERED: CEFTRIAXONE/SWI 1gm 1 GM/10 ML SYR ONE (18:43)
[2020-08-13] MEDS ORDERED: AZITHROMYCIN 500 MG INJ IVPB ONE (18:43)
[2020-08-13] MEDS ORDERED: NA CHLORIDE 0.9% 250 ML ONE (18:43)
[2020-08-13] MEDS ORDERED: FENTANYL CITR 100 MCG/2 ML ONE (18:58)
[2020-08-13 19:19] LABS: Ferritin 159.3 ng/mL (8-388)
--- NOTE | 2020-08-13 21:08 | P.HP ---
Certification for Inpatient Patient admitted to: Inpatient With expected LOS: >2 Midnights Patient will require the following post-hospital care: None Practitioner: I am a practitioner with admitting privileges, knowledge of patient current condition, hospital course, and medical plan of care. Services: Services provided to patient in accordance with Admission requirements found in Title 42 Section 412.3 of the Code of Federal Regulations Patient History Date of Service: 08/13/20 Reason for admission: Pyelonephritis, pneumonia History of Present Illness: 35-year-old female history diabetes mellitus type 2 presents emergency department for dysuria, nausea, vomiting, abdominal pain/back pain. Patient reports for the last couple of days she has had dysuria, fever, abdominal pain. Lab significant for white blood cell count 16.9 sodium 133 GFR 80 glucose 351 C. reactive protein 309 urine bacteria 20-50 CT demonstrates moderate left-sided pyelonephritis and additionally chest x-ray shows suspected left sided pneumonia. Patient does report shortness of breath with exertion since she had COVID early this year, patient currentlyCOVID negative. ED provider wishes to admit for further evaluation and management. Allergies clindamycin Allergy (Verified 08/13/20 20:29) Hives/Rash - Past Medical/Surgical History -: Diabetes mellitus type 2 -: none Psychosocial/ Personal History: Patient lives with family - Family History Mother -: Diabetes - Social History Smoking Status: Current every day smoker Counseled patient to stop smoking for: less than 10 minutes Smoking therapy provided: No Alcohol use: Yes CD- Drugs: No Caffeine use: Yes Place of Residence: Home Review of Systems 10-point ROS is otherwise unremarkable General: Fever, Chills, Malaise Gastrointestinal: Nausea, Vomiting, Abdominal Pain Genitourinary: Dysuria, Frequency, Urgency Physical Examination - Physical Exam General: Alert, In no apparent distress HEENT: Atraumatic, PERRLA, Mucous membr. moist/pink Neck: Supple, 2+ carotid pulse no bruit, No LAD Respiratory: Clear to auscultation bilaterally, Normal air movement Cardiovascular: Regular rate/rhythm, Normal S1 S2 Gastrointestinal: Normal bowel sounds, Other (Mild CVA tenderness left-sided) Musculoskeletal: No tenderness Integumentary: No rashes Neurological: Normal gait, Normal speech, Normal strength at 5/5 x4 extr, Normal tone, Normal affect - Studies Laboratory Data (last 24 hrs) 08/13/20 15:02: WBC 16.90 H, Hgb 13.2, Hct 38.7, Plt Count 202 08/13/20 15:02: Sodium 133 L, Potassium 3.6, BUN 15, Creatinine 0.81, Glucose 351 H, Total Bilirubin 0.7, AST 12 L, ALT 24, Alkaline Phosphatase 137 H, Lipase 29 L Assessment and Plan - Plan Assessment Fever, abdominal pain, vomiting secondary to Moderate left-sided pyelonephritis Suspected left-sided pneumonia-Hx COVID early 2020 Diabetes mellitus type 2 with hyperglycemia Plan Fever, abdominal pain, vomiting secondary to Moderate left-sided pyelonephritis: Continue with IV fluids, Rocephin. Blood and urine cultures obtained. P.r.n. pain medications and anti emetics, NPO aside from sips of water and ice chips for tonight advance as tolerated. DVT prophylaxis Lovenox 40 mg subcutaneous once daily. Suspected left-sided pneumonia-Hx COVID early 2020: Continue Zithromax in addition to Rocephin, patient without hypoxia are other significant respiratory symptoms at this time, could be chest x-ray changes from history of COVID. Will continue to monitor. Diabetes mellitus type 2 with hyperglycemia: Patient reports she is suppose to be on metformin but has not taken it for about a year. Will obtain A1c, a.c. HS Accu-Cheks, sliding scale insulin therapy. Patient may require insulin but at least metformin at discharge. Discharge Plan: Home Plan to discharge in: 48 Hours - Advance Directives Does patient have a Living Will: No Does patient have a Durable POA for Healthcare: No - Code Status/Comfort Care Code Status Assessed: Yes (Full code) Critical Care: No Time Spent Managing Pts Care (In Minutes): 55
[2020-08-13 21:29] VITALS: BMI 34.4
[2020-08-13] MEDS: INSULIN -REGULAR HUMAN 50 UNIT/0.5 ML ML SQ SCH (21:47)
[2020-08-13] MEDS: NA CHLORIDE 0.9% 1,000 ML IV SCH (21:48)
[2020-08-13] MEDS: MORPHINE 2 MG/ML SYR IV PRN (22:34)
[2020-08-14] MEDS: ACETAMINOPHEN 500 MG TAB PO PRN ×2 (01:17→16:48)
[2020-08-14 04:08] LABS: Absolute Lymphocytes (CBC) 0.7 K/uL (0.7-4.9); Basophils % 0.2 % (0-1.3); Hematocrit 33.3 % (36.0-45.0); Lymphocytes % 4.5 % (15.3-44.8); MPV 8.2 fL (7.6-11.3); RBC Red Blood Cell Count 3.98 M/uL (3.86-4.86)
[2020-08-14 04:48] LABS: ALT/SGPT 19 U/L (12-78); AST/SGOT 11 U/L (15-37); Albumin 2.3 g/dL (3.4-5.0); Alkaline Phosphatase 103 U/L (45-117); BUN Blood Urea Nitrogen 16 mg/dL (7-18); Bicarbonate 22 mmol/L (21-32); Bilirubin Total 0.5 mg/dL (0.2-1.0); Glucose Level 265 mg/dL (74-106); Magnesium 1.6 mg/dL (1.8-2.4); Potassium 3.4 mmol/L (3.5-5.1); Protein, Total 6.2 g/dL (6.4-8.2); Sodium Level 134 mmol/L (136-145)
[2020-08-14] MEDS ORDERED: NA CHLORIDE 0.9% 1,000 ML IV ONE (04:58)
[2020-08-14] MEDS: MORPHINE 2 MG/ML SYR IV PRN ×2 (05:07→19:08)
[2020-08-14] MEDS: NA CHLORIDE 0.9% 1,000 ML IV SCH ×3 (05:42→19:09)
[2020-08-14] MEDS ORDERED: D50W 25 GM/50 ML SYRINGE IV PRN (06:02)
[2020-08-14] MEDS ORDERED: GLUCAGON 1 MG/VIAL IM PRN (06:02)
[2020-08-14] MEDS ORDERED: TRAMADOL HCL 50 MG TAB PO PRN (06:54)
[2020-08-14] MEDS: HYDROCODONE/APAP 7.5/325 MG TAB PO PRN (08:50)
[2020-08-14] MEDS: INSULIN GLARGINE 100 UNITS/ML SQ SCH (08:51)
[2020-08-14] MEDS: ONDANSETRON 4 MG/2 ML VIAL IV PRN ×2 (08:51→19:08)
[2020-08-14] MEDS: INSULIN -REGULAR HUMAN 50 UNIT/0.5 ML ML SQ SCH ×4 (08:52→21:07)
[2020-08-14] MEDS: ENOXAPARIN 40 MG/0.4 ML SQ SCH (08:53)
[2020-08-14] MEDS ORDERED: CEFTRIAXONE 1 GM/NS 50 ML 1 GM/50 ML BAG IV SCH (09:00)
[2020-08-14] MEDS ORDERED: POTASSIUM CL SA 10 MEQ TAB PO ONE (09:00)
--- NOTE | 2020-08-14 11:04 | P.CNS ---
Date of Consult: 08/14/20 Reason for Consult: Abnormal chest x-ray Chief Complaint: Pyelonephritis, pneumonia History of Present Illness: Patient is 35 years of age with admitted with acute onset of fever admitted with pyelonephritis cultures are still pending urine shows gram-negative rods pill feeling a little weak denies any cough shortness of breath she came to the emergency room with dysuria nausea vomiting abdominal pain did white count Allergies clindamycin Allergy (Verified 08/13/20 20:29) Hives/Rash Home Medications: NK [No Home Meds] 08/13/20 - Past Medical/Surgical History -: Diabetes mellitus type 2 no medication at home -: none Psychosocial/ Personal History: Patient lives with family - Family History Mother Medical History: Diabetes - Social History Smoking Status: Current some day smoker Alcohol use: Yes CD- Drugs: No Caffeine use: Yes Place of Residence: Home Review of Systems General: Weakness Gastrointestinal: Nausea, Vomiting Physical Examination Temp Pulse Resp BP Pulse Ox 98.6 F 109 H 20 99/53 L 100 08/14/20 08:00 08/14/20 08:00 08/14/20 08:50 08/14/20 08:00 08/14/20 08:50 General: Alert, Oriented x3, Mild distress Neck: Supple Respiratory: Clear to auscultation bilaterally Cardiovascular: No edema, Normal S1 S2 Laboratory Data (last 24 hrs) 08/13/20 15:02: WBC 16.90 H, Hgb 13.2, Hct 38.7, Plt Count 202 08/13/20 15:02: Sodium 133 L, Potassium 3.6, BUN 15, Creatinine 0.81, Glucose 351 H, Total Bilirubin 0.7, AST 12 L, ALT 24, Alkaline Phosphatase 137 H, Lipase 29 L - Problems (1) Pyelonephritis Current Visit: Yes Status: Acute Plan: Patient is 35 years of age admitted with left-sided pyelonephritis urinalysis positive for gram-negative rods some inflammatory change noted in the left lower lung base continue with IV Rocephin Dc Zithromax continue with IV fluids procalcitonin is elevated she is probably bacteremic with seeding of the lungs improving continue with IV fluids white count is also elevated monitor pro calcitonin level the be in hospital 1 or 2 days
--- NOTE | 2020-08-14 12:43 | P.PN ---
Subjective Date of Service: 08/14/20 Chief Complaint: Pyelonephritis, pneumonia Subjective: Improving (Patient had T-max of 100.6. Blood pressure stable. Patient reports improvement) Physical Examination - Vital Signs Temperature: 98.6 F Blood Pressure: 99/53 Pulse: 109 Respirations: 20 Pulse Ox (%): 100 - Studies Laboratory Data (last 24 hrs) 08/13/20 15:02: WBC 16.90 H, Hgb 13.2, Hct 38.7, Plt Count 202 08/13/20 15:02: Sodium 133 L, Potassium 3.6, BUN 15, Creatinine 0.81, Glucose 351 H, Total Bilirubin 0.7, AST 12 L, ALT 24, Alkaline Phosphatase 137 H, Lipase 29 L Assessment & Plan Discharge Plan: Home Plan to discharge in: 72 Hours Physician Review Additional Text: Physical Exam: GENERAL: [The patient is a well-developed, well-nourished, in no apparent distress. Alert and oriented x3.] VITAL SIGNS: [Reviewed] HEENT: [Head is normocephalic and atraumatic. Extraocular muscles are intact. Pupils are equal, round, and reactive to light and accommodation. Nares appeared normal. Mouth is well hydrated and without lesions. Mucous membranes are moist. ] NECK: [Supple. No carotid bruits. No lymphadenopathy or thyromegaly.] LUNGS: [Clear to auscultation. No crackles or wheezes are heard.] HEART: [Regular rate and rythem, no appreciable gallops, rubs, murmurs or extra heart sounds] ABDOMEN: Slight pain to the left flank EXTREMITIES: [Without any cyanosis, clubbing, rash, lesions or peripheral edema.] NEUROLOGIC: [The patient is oriented to person, place and time. Strength and sensation are grossly intact. Face is symmetric.] SKIN: [Normal color, turgor and temperature. No ulcerations or rashes noted.] Impression: Fever, abdominal pain, vomiting secondary to Moderate left-sided pyelonephritis Left-sided pneumonia-Hx COVID early 2020 Diabetes mellitus type 2 with hyperglycemia Plan Fever, abdominal pain, vomiting secondary to Moderate left-sided pyelonephritis: Continue aggressive IV fluids. No evidence of sepsis at this time. Continue IV Rocephin. Await urine and blood cultures. Patient may have bacteremia. Urine culture shows gram-negative rods. Encourage oral intake. DVT prophylaxis in place. Will provide medication for pain. Case discussed with pulmonology. Pulmonology recommends to discontinue Zithromax. Anticipate improvement over the next 48 hours. Left-sided pneumonia-Hx COVID early 2020: Case discussed with pulmonology. Pulmonology recommends to discontinue Zithromax and continue with Rocephin only. Encourage incentive spirometer. Encourage ambulation. Diabetes mellitus type 2 with hyperglycemia: A1c 8.1. Hold Metformin. Continue Accu-Cheks and sliding scale. Will start basal insulin for better control at this time. Code Status: [Full Code] DVT prophylaxis: [Lovenox] Advanced Care Planning-30 minutes: Plan of care for the patient's discharge was discussed in detail with the patient. Patient plans to go home at discharge. Time Spent Managing Pts Care (In Minutes): 55
[2020-08-14] MEDS ORDERED: NA CHLORIDE 0.9% 500 ML IV ONE (16:54)
[2020-08-14] MEDS ORDERED: AZITHROMYCIN IV 500 MG in NA CHLORIDE 0.9% 250 ML IVPB SCH (18:30)
[2020-08-14] MEDS ORDERED: CEFTRIAXONE/SWI 1gm 1 GM/10 ML SYR IV SCH (18:30)
[2020-08-14] MEDS: CEFTRIAXONE/SWI 1gm 1 GM/10 ML SYR IV SCH (21:04)
[2020-08-15] MEDS: MORPHINE 2 MG/ML SYR IV PRN ×3 (00:32→19:59)
[2020-08-15] MEDS: NA CHLORIDE 0.9% 1,000 ML IV SCH ×3 (04:32→20:00)
[2020-08-15] MEDS: ONDANSETRON 4 MG/2 ML VIAL IV PRN ×3 (04:39→20:00)
[2020-08-15 05:07] LABS: Absolute Lymphocytes (CBC) 1.1 K/uL (0.7-4.9); Basophils % 0.2 % (0-1.3); Hematocrit 34.8 % (36.0-45.0); Lymphocytes % 9.9 % (15.3-44.8); MPV 8.5 fL (7.6-11.3); RBC Red Blood Cell Count 4.14 M/uL (3.86-4.86)
[2020-08-15 05:46] LABS: ALT/SGPT 17 U/L (12-78); AST/SGOT 15 U/L (15-37); Albumin 2.1 g/dL (3.4-5.0); Alkaline Phosphatase 110 U/L (45-117); BUN Blood Urea Nitrogen 11 mg/dL (7-18); Bicarbonate 20 mmol/L (21-32); Bilirubin Total 0.4 mg/dL (0.2-1.0); Ferritin 237.1 ng/mL (8-388); Glucose Level 167 mg/dL (74-106); Magnesium 2.1 mg/dL (1.8-2.4); Potassium 3.6 mmol/L (3.5-5.1); Protein, Total 6.5 g/dL (6.4-8.2); Sodium Level 134 mmol/L (136-145)
[2020-08-15] MEDS: INSULIN -REGULAR HUMAN 50 UNIT/0.5 ML ML SQ SCH ×4 (07:30→21:00)
[2020-08-15] MEDS: INSULIN GLARGINE 100 UNITS/ML SQ SCH (08:34)
[2020-08-15] MEDS: ENOXAPARIN 40 MG/0.4 ML SQ SCH (08:35)
[2020-08-15] MEDS: CEFTRIAXONE/SWI 1gm 1 GM/10 ML SYR IV SCH ×2 (08:35→19:59)
[2020-08-15] MEDS: HYDROCODONE/APAP 7.5/325 MG TAB PO PRN ×2 (08:36→13:54)
[2020-08-15] MEDS: METFORMIN HCL 500 MG TAB PO SCH ×2 (08:36→17:13)
[2020-08-15] MEDS: THIAMINE HCL 100 MG TABLET PO SCH (08:37)
[2020-08-15] MEDS: FOLIC ACID 1 MG TABLET PO SCH (08:37)
[2020-08-15] MEDS: LACTOBACILLUS/ACIDOPHILUS TAB PO SCH ×3 (08:37→19:59)
[2020-08-15] MEDS ORDERED: POTASSIUM 25 MEQ EFFERV TAB PO ONE (09:00)
--- NOTE | 2020-08-15 09:29 | P.PN ---
Subjective Date of Service: 08/15/20 Primary Care Provider: Angelita Núñez Chief Complaint: Pyelonephritis, pneumonia Subjective: Improving (Still with pain to the left flank.) Physical Examination - Vital Signs Temperature: 98.1 F Blood Pressure: 123/63 Pulse: 104 Respirations: 18 Pulse Ox (%): 98 - Studies Microbiology Data (last 24 hrs): 08/13/20 15:21 Clean Catch Urine Vadito Count - Final >100,000 CFU/ML. 08/13/20 15:21 Clean Catch Urine - Final Escherichia Coli Assessment & Plan Discharge Plan: Home Plan to discharge in: 24 Hours Physician Review Additional Text: Physical Exam: GENERAL: [The patient is a well-developed, well-nourished, in no apparent distress. Alert and oriented x3.] VITAL SIGNS: [Reviewed] HEENT: Neck supple. LUNGS: [Clear to auscultation. No crackles or wheezes are heard.] HEART: [Regular rate and rhythm, no appreciable gallops, rubs, murmurs or extra heart sounds] ABDOMEN: Left flank pain remains but stable and slightly improved. Good bowel sounds noted. EXTREMITIES: [Without any cyanosis, clubbing, rash, lesions or peripheral edema.] NEUROLOGIC: [The patient is oriented to person, place and time. Strength and sensation are grossly intact. Face is symmetric.] SKIN: [Normal color, turgor and temperature. No ulcerations or rashes noted.] Impression: Fever, abdominal pain, vomiting secondary to acute moderate moderate left-sided pyelonephritis with bacteremia, urine culture positive for E. coli Left-sided pneumonia-Hx COVID early 2020 Diabetes mellitus type 2 with hyperglycemia Obesity, BMI greater than 30 Plan Fever, abdominal pain, vomiting secondary to acute moderate left-sided pyelonephritis with bacteremia, urine culture positive for E. coli: Patient overall improved. Continue with aggressive IV fluids. IV Rocephin increased to twice daily yesterday. Continue pain control. Urine culture positive for E. coli. Awaiting culture results on blood. Also await echocardiogram to further evaluate. Will recheck chest x-ray tomorrow. Recheck procalcitonin, blood cultures, urine cultures as well to monitor improvement. Continue DVT prophylaxis. Consider discharge as early as tomorrow if significantly improved. Patient will need antibiotic therapy for 2 weeks. UTI prevention address in detail. I will turn the service over to the hospitalist team tomorrow. I will go over the plan of care with him. Left-sided pneumonia-Hx COVID early 2020: Case discussed with pulmonology. Continue with Rocephin. Encourage incentive spirometer. Encourage ambulation. Recheck chest x-ray tomorrow. Diabetes mellitus type 2 with hyperglycemia: A1c 8.1. Will start Metformin. Patient not previously on medication although she knew that she had diabetes. Patient currently on basal insulin for better diabetic control at this time. Patient may be able to be sent home with oral medication only at discharge. Continue Accu-Cheks and sliding scale. Obesity, BMI greater than 30: Continue lifestyle modification education. Code Status: [Full Code] DVT prophylaxis: [Lovenox] Advanced Care Planning-30 minutes: Plan of care for the patient's discharge was discussed in detail with the patient. Patient plans to go home at discharge. Time Spent Managing Pts Care (In Minutes): 55
[2020-08-15] MEDS: ACETAMINOPHEN 500 MG TAB PO PRN (20:08)
[2020-08-16] MEDS: MORPHINE 2 MG/ML SYR IV PRN ×2 (03:13→10:30)
[2020-08-16] MEDS: ONDANSETRON 4 MG/2 ML VIAL IV PRN ×2 (03:13→10:29)
[2020-08-16] MEDS: ACETAMINOPHEN 500 MG TAB PO PRN ×2 (04:20→13:34)
[2020-08-16] MEDS: NA CHLORIDE 0.9% 1,000 ML IV SCH ×3 (05:37→20:47)
[2020-08-16 06:23] LABS: Absolute Lymphocytes (CBC) 0.7 K/uL (0.7-4.9); Basophils % 0.4 % (0-1.3); Hematocrit 29.2 % (36.0-45.0); Lymphocytes % 12.8 % (15.3-44.8); MPV 7.8 fL (7.6-11.3); RBC Red Blood Cell Count 3.56 M/uL (3.86-4.86)
[2020-08-16 06:42] LABS: BUN Blood Urea Nitrogen 8 mg/dL (7-18); Bicarbonate 22 mmol/L (21-32); Glucose Level 191 mg/dL (74-106); Potassium 3.1 mmol/L (3.5-5.1); Sodium Level 135 mmol/L (136-145)
[2020-08-16] MEDS: INSULIN -REGULAR HUMAN 50 UNIT/0.5 ML ML SQ SCH ×4 (07:30→20:46)
--- NOTE | 2020-08-16 07:48 | RAD REPORT ---
EXAM DESCRIPTION: Gilt Pa And Lat (2 Views)08/16/2020 6:11 am CLINICAL HISTORY: Cough COMPARISON: August 13, 2020 FINDINGS: [id number] bilateral pulmonary opacities. Heart is normal size IMPRESSION: [id number] bilateral pulmonary opacities probably pneumonia
[2020-08-16] MEDS: INSULIN GLARGINE 100 UNITS/ML SQ SCH (08:32)
[2020-08-16] MEDS: METFORMIN HCL 500 MG TAB PO SCH ×2 (08:33→16:23)
[2020-08-16] MEDS: THIAMINE HCL 100 MG TABLET PO SCH (08:33)
[2020-08-16] MEDS: LACTOBACILLUS/ACIDOPHILUS TAB PO SCH ×3 (08:33→20:46)
[2020-08-16] MEDS: FOLIC ACID 1 MG TABLET PO SCH (08:33)
[2020-08-16] MEDS: CEFTRIAXONE/SWI 1gm 1 GM/10 ML SYR IV SCH ×2 (08:34→20:46)
[2020-08-16] MEDS: ENOXAPARIN 40 MG/0.4 ML SQ SCH (08:35)
[2020-08-16] MEDS ORDERED: POTASSIUM 25 MEQ EFFERV TAB PO ONE ×2 (09:48→21:00)
[2020-08-16] MEDS: HYDROCODONE/APAP 7.5/325 MG TAB PO PRN (20:46)
[2020-08-17] MEDS: HYDROCODONE/APAP 7.5/325 MG TAB PO PRN ×4 (04:18→23:33)
[2020-08-17 04:19] LABS: Absolute Lymphocytes (CBC) 0.8 K/uL (0.7-4.9); Basophils % 2.5 % (0-1.3); Hematocrit 29.6 % (36.0-45.0); MPV 7.4 fL (7.6-11.3); RBC Red Blood Cell Count 3.64 M/uL (3.86-4.86)
[2020-08-17 04:24] LABS: BUN Blood Urea Nitrogen 6 mg/dL (7-18); Bicarbonate 26 mmol/L (21-32); Glucose Level 156 mg/dL (74-106); Potassium 3.4 mmol/L (3.5-5.1); Sodium Level 140 mmol/L (136-145)
[2020-08-17] MEDS: NA CHLORIDE 0.9% 1,000 ML IV SCH ×3 (05:09→23:34)
[2020-08-17] MEDS ORDERED: POTASSIUM 25 MEQ EFFERV TAB PO ONE ×2 (05:35→19:01)
[2020-08-17] MEDS: INSULIN -REGULAR HUMAN 50 UNIT/0.5 ML ML SQ SCH ×4 (07:30→20:26)
--- NOTE | 2020-08-17 08:16 | ECHO ---
HEIGHT: 5 ft 3 in WEIGHT: 194 lb 9.6 oz DATE OF STUDY: 08/16/[address]: Derek Saeed DO 2-DIMENSIONAL: YES M.MODE: YES DOPPLER: YES COLOR FLOW: YES TDS: PORTABLE: DEFINITY: BUBBLE STUDY: DIAGNOSIS: DYSPNEA, LEFT SIDE PYELONEPHRITIS WITH PNEUMONIA CARDIAC HISTORY: CATHERIZATION: NO SURGERY: NO PROSTHETIC VALVE: NO PACEMAKER: NO MEASUREMENTS (cm) DIASTOLIC (NORMALS) SYSTOLIC (NORMALS) IVSd 1.0 (0.6-1.2) LA Diam 3.5 (1.9-4.0) LVEF 58% LVIDd 4.8 (3.5-5.7) LVIDs 3.3 (2.0-3.5) %FS 31% LVPWd 1.1 (0.6-1.2) Ao Diam 2.6 (2.0-3.7) 2 DIMENSIONAL ASSESSMENT: RIGHT ATRIUM: NORMAL LEFT ATRIUM: NORMAL RIGHT VENTRICLE: NORMAL LEFT VENTRICLE: NORMAL TRICUSPID VALVE: MILD TRICUSPID REGURGITATION MITRAL VALVE: MILD MITRAL REGURGITATION PULMONIC VALVE: NORMAL AORTIC VALVE: NORMAL PERICARDIAL EFFUSION: NONE AORTIC ROOT: NORMAL LEFT VENTRICULAR WALL MOTION: NORMAL DOPPLER/COLOR FLOW: SEE BELOW COMMENTS: NORMAL LEFT VENTRICULAR EJECTION FRACTION 55-60%. MILD MITRAL REGURGITATION. MILD TRICUSPID REGURGITATION. NORMALDIASTOLOGY. TECHNOLOGIST: GEORGIA BANUELOS
[2020-08-17] MEDS: ENOXAPARIN 40 MG/0.4 ML SQ SCH (09:00)
[2020-08-17] MEDS: FOLIC ACID 1 MG TABLET PO SCH (09:35)
[2020-08-17] MEDS: THIAMINE HCL 100 MG TABLET PO SCH (09:35)
[2020-08-17] MEDS: LACTOBACILLUS/ACIDOPHILUS TAB PO SCH ×3 (09:35→20:42)
[2020-08-17] MEDS: INSULIN GLARGINE 100 UNITS/ML SQ SCH (09:36)
[2020-08-17] MEDS: CEFTRIAXONE/SWI 1gm 1 GM/10 ML SYR IV SCH (09:38)
[2020-08-17] MEDS: METFORMIN HCL 500 MG TAB PO SCH ×2 (10:48→16:49)
[2020-08-17] MEDS: ONDANSETRON 4 MG/2 ML VIAL IV PRN ×3 (10:49→23:34)
[2020-08-17] MEDS: levoFLOXacin 750 MG TAB PO SCH (14:49)
[2020-08-17 21:50] VITALS: O2SAT 99
[2020-08-18] MEDS: NA CHLORIDE 0.9% 1,000 ML IV SCH (05:09)
[2020-08-18 06:48] LABS: BUN Blood Urea Nitrogen 6 mg/dL (7-18); Bicarbonate 25 mmol/L (21-32); Glucose Level 142 mg/dL (74-106); Potassium 3.5 mmol/L (3.5-5.1); Sodium Level 140 mmol/L (136-145)
[2020-08-18] MEDS: INSULIN -REGULAR HUMAN 50 UNIT/0.5 ML ML SQ SCH (07:30)
[2020-08-18 08:51] VITALS: BP 123/76; TEMP 97
[2020-08-18] MEDS: LACTOBACILLUS/ACIDOPHILUS TAB PO SCH (08:55)
[2020-08-18] MEDS: METFORMIN HCL 500 MG TAB PO SCH (08:55)
[2020-08-18] MEDS: INSULIN GLARGINE 100 UNITS/ML SQ SCH (08:55)
[2020-08-18] MEDS: levoFLOXacin 750 MG TAB PO SCH (08:56)
[2020-08-18] MEDS: THIAMINE HCL 100 MG TABLET PO SCH (08:56)
[2020-08-18] MEDS: FOLIC ACID 1 MG TABLET PO SCH (08:56)
[2020-08-18] MEDS: ENOXAPARIN 40 MG/0.4 ML SQ SCH (08:57)
[2020-08-18] MEDS ORDERED: POTASSIUM CL SA 10 MEQ TAB PO ONE (09:00)
[2020-08-18] MEDS ORDERED: ENSURE HIGH PROTEIN 237 ML CAN PO SCH (21:00)
--- NOTE | 2020-08-23 04:03 | P.PN ---
Subjective Date of Service: 08/16/20 Patient still having some pain. Symptoms are slowly improving. Still having some fevers. Will need to continue with antibiotic therapy until afebrile. Review of Systems 10-point ROS is otherwise unremarkable Physical Examination - Vital Signs Temperature: 97 F Blood Pressure: 123/76 Pulse: 70 Respirations: 18 Pulse Ox (%): 100 - Physical Exam General: Alert, In no apparent distress, Oriented x3 Respiratory: Clear to auscultation bilaterally, Normal air movement Cardiovascular: Regular rate/rhythm, Normal S1 S2 Gastrointestinal: Normal bowel sounds, Soft and benign, Non-distended, No rebound, No guarding, Tenderness (Flank tenderness) Musculoskeletal: No clubbing, No swelling, No tenderness Neurological: Normal strength at 5/5 x4 extr, Sensation intact, Cranial nerves 3-12 intact - Studies Medications List Reviewed: Yes Assessment & Plan - Problems (Diagnosis) (1) Pyelonephritis Status: Acute - Plan 1. Continue with IV hydration 2. Continue with IV antibiotics 3. Continue with pain control 4. Regular diet 5. Outpatient Urology consultation; outpatient colonoscopy in 6-12 weeks 6. Serial H&H, and we will monitor CBC, BMP, LFTs along with electrolytes. 7. GI and DVT prophylaxis Discharge Plan: Home Plan to discharge in: Greater than 2 days - Advance Directives Does patient have a Living Will: No Does patient have a Durable POA for Healthcare: No - Code Status/Comfort Care Code Status Assessed: Yes Code Status: Full Code Critical Care: No Time Spent Managing PTS Care (In Minutes): 35
--- NOTE | 2020-08-23 04:04 | P.PN ---
Date of Service: 08/17/20 Subjective Patient doing better. Fever hopefully has resolved. Continue with plan of care. Review of Systems 10-point ROS is otherwise unremarkable Physical Examination - Vital Signs Reviewed - Physical Exam General: Alert, In no apparent distress, Oriented x3 Respiratory: Clear to auscultation bilaterally, Normal air movement Cardiovascular: Regular rate/rhythm, Normal S1 S2 Gastrointestinal: Normal bowel sounds, Soft and benign, Non-distended, No rebound, No guarding, Tenderness (Flank tenderness) Musculoskeletal: No clubbing, No swelling, No tenderness Neurological: Normal strength at 5/5 x4 extr, Sensation intact, Cranial nerves 3-12 intact Assessment & Plan - Problems (Diagnosis) (1) Pyelonephritis Status: Acute - Plan Continue with plan of care as mentioned below: 1. Continue with IV hydration 2. Continue with IV antibiotics 3. Continue with pain control 4. Regular diet 5. Outpatient Urology consultation; outpatient colonoscopy in 6-12 weeks 6. Serial H&H, and we will monitor CBC, BMP, LFTs along with electrolytes. 7. GI and DVT prophylaxis
--- NOTE | 2020-08-23 04:05 | P.DS ---
Discharge Date: 08/18/20 Primary Care Provider: Ethan Núñez Disposition: ROUTINE DISCHARGE Discharge Condition: GOOD Reason for Admission: Pyelonephritis, pneumonia - Problems (1) Pyelonephritis Status: Acute Brief History of Present Illness: 35-year-old female history diabetes mellitus type 2 presents emergency department for dysuria, nausea, vomiting, abdominal pain/back pain. Patient reports for the last couple of days she has had dysuria, fever, abdominal pain. Lab significant for white blood cell count 16.9 sodium 133 GFR 80 glucose 351 C. reactive protein 309 urine bacteria 20-50 CT demonstrates moderate left-sided pyelonephritis and additionally chest x-ray shows suspected left sided pneumonia. Patient does report shortness of breath with exertion since she had COVID early this year, patient currentlyCOVID negative. ED provider wishes to admit for further evaluation and management. Hospital Course: Patient is clinically doing well. Continue with oral antibiotic therapy for 7- 10 more days. Outpatient follow-up with Urology. Vital Signs/Physical Exam: Temp Pulse Resp BP Pulse Ox 97 F 70 18 123/76 100 08/23/20 04:03 08/23/20 04:03 08/23/20 04:03 08/23/20 04:03 08/23/20 04:03 General: Alert, In no apparent distress, Oriented x3 Laboratory Data at Discharge: WBC 5.10 K/uL (4.3-10.9) 08/17/20 03:48 Hgb 10.5 g/dL (12.0-15.0) L 08/17/20 03:48 Hct 29.6 % (36.0-45.0) L 08/17/20 03:48 Plt Count 204 K/uL (152-406) 08/17/20 03:48 Sodium 140 mmol/L (136-145) 08/18/20 05:55 Potassium 3.5 mmol/L (3.5-5.1) 08/18/20 05:55 BUN 6 mg/dL (7-18) L 08/18/20 05:55 Creatinine 0.34 mg/dL (0.55-1.3) L 08/18/20 05:55 Glucose 142 mg/dL (74-106) H 08/18/20 05:55 Magnesium 2.1 mg/dL (1.8-2.4) D 08/15/20 04:11 Total Bilirubin 0.4 mg/dL (0.2-1.0) 08/15/20 04:11 AST 15 U/L (15-37) 08/15/20 04:11 ALT 17 U/L (12-78) 08/15/20 04:11 Alkaline Phosphatase 110 U/L (45-117) 08/15/20 04:11 Lipase 29 U/L (73-393) L 08/13/20 15:02 Home Medications: Ondansetron [Zofran] 4 mg PO Q6H PRN #10 tab 08/18/20 levoFLOXacin [Levaquin] 500 mg PO DAILY #10 tab 08/18/20 New Medications: levoFLOXacin [Levaquin] 500 mg PO DAILY #10 tab Ondansetron [Zofran] 4 mg PO Q6H PRN #10 tab PRN Reason: Nausea / Vomiting Diet: Regular Activity: Fall precautions Followup: [facility] [Primary Care Provider] - Time spent managing pt's care (in minutes): 35
== END 2020-08-18 10:30 | disposition home or self-care (01) | DRG 689 ==
LOC: ER 13:59 → ERHOLD 18:35 → 2ND 20:35
PROVIDERS: ADMIT Family Medicine; ATTEND Hospitalist
DX: N10 Acute pyelonephritis (principal); J18.9 Pneumonia, unspecified organism; R78.81 Bacteremia; E11.65 Type 2 diabetes mellitus with hyperglycemia; F17.210 Nicotine dependence, cigarettes, uncomplicated; B96.20 Unspecified Escherichia coli [E. coli] as the cause of diseases classified elsewhere; E66.9 Obesity, unspecified; Z68.30 Body mass index [BMI] 30.0-30.9, adult; Z88.1 Allergy status to other antibiotic agents; Z86.16 Personal history of COVID-19; Z79.899 Other long term (current) drug therapy; Z20.822 Contact with and (suspected) exposure to COVID-19
CPT/HCPCS: 36415; 71046; 74177; 80048; 80053; 80076; 81003; 81015; 81025; 82728; 82947; 83036; 83605; 83690; 83735; 84132; 84145; 85025; 86140; 87040; 87077; 87086; 87088; 87186; 87205; 93306; 94010; 96361; 96365; 96366; 96375; 99285; J0456; J0696; J1650; J1815; J2270; J2405; J3010; J7030; J7050; Q9966; U0003